=== PATIENT | male | born 1995 | race Caucasian/White ===

== ENCOUNTER 2017-09-02 23:17 | Emergency (ER) | payer OTHER ==
--- NOTE | 2017-09-03 00:37 | ER ---
Nurse's Notes [facility] Name: Morales Mccracken Age: 22 yrs Sex: Male : 1995 Arrival Date: 09/02/2017 Time: 23:18 Bed 28 Private MD: Diagnosis: Cellulitis of right upper limb-Possible insect bite Presentation: 09/02 23:40 Presenting complaint: Patient states: He got home from work and had his arm resting on kr2 the truck window, he felt a sting on his arm and swatted a but off of him but did not see what it was. He has a red raised bump with 3 dark purple spots on the right forearm area. Occurred about 2144. States his arm feels very stiff and aching. He also complains of hot/cold flashes. Transition of care: patient was not received from another setting of care. Onset of symptoms was September 02, 2017 at 21:45. Care prior to arrival: Medication(s) given: States he had a headache and took Excedrin prior to arriva. 23:40 Method Of Arrival: Ambulatory [facility] 23:40 Acuity: SARA 4 kr2 Triage Assessment: 23:47 Bite description: bite sustained to palmar aspect of right forearm is from insect by kr2 unknown, animal information: vaccination(s) is not applicable. General: Appears in no apparent distress. comfortable, well groomed, well developed, well nourished, Behavior is cooperative, appropriate for age, anxious. Pain: Complains of pain in palmar aspect of right forearm Pain radiates to right arm Pain currently is 7 out of 10 on a pain scale. Quality of pain is described as aching, tender, stinging, Pain began suddenly, Is continuous, Alleviated by nothing. Aggravated by touch. Historical: - Allergies: 23:46 PENICILLINS; kr2 23:46 Sulfa (Sulfonamide Antibiotics); kr2 23:50 bee stings; kr2 - Home Meds: 23:46 Excedrin Migraine 250-250-65 mg oral tab [Active]; kr2 - PMHx: 23:46 Deaf; kr2 - PSHx: 23:46 None; cochlear implants (unsuccessful); kr2 - Immunization history:: Adult Immunizations up to date. - Social history:: Smoking status: Patient/guardian denies using tobacco. Screenin:47 Abuse screen: Denies threats or abuse. Denies injuries from another. Nutritional kr2 screening: No deficits noted. Tuberculosis screening: No symptoms or risk factors identified. Fall Risk None identified. Assessment: 23:49 Derm: Skin is intact, is healthy with good turgor, Skin is pink, warm \T\ dry. kr2 09/03 01:00 Reassessment: Patient appears in no apparent distress at this time. No changes from tl3 previously documented assessment. Patient and/or family updated on plan of care and expected duration. Pain level reassessed. Patient is alert, oriented x 3, equal unlabored respirations, skin warm/dry/pink. pt reports that arm is feeling tight, Adonis notified. General: Appears. 01:08 Reassessment: RECD REPORT FROM EMILY RODRIGUES. 22YO WM P/W ALLERGIC RXN, ALL CURRENT ORDERS bp IN PROCESS. 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 02:27 Reassessment: PT D/C HOME AMBULATORY WITH FRIEND, DX WITH CELLULITIS. bp Vital Signs: 09/02 23:43 BP 158 / 106; Pulse 104; Resp 18; Temp 98.8; Pulse Ox 97% on R/A; Weight 83.91 kg; kr2 Height 5 ft. 8 in. (172.72 cm) (R); Pain 7/10; 09/03 01:18 BP 148 / 98; Pulse 98; Resp 18; Pulse Ox 100% ; tl3 02:28 BP 131 / 85; Pulse 97; Resp 16; Pulse Ox 98% ; bp 09/02 23:43 Body Mass Index 28.13 (83.91 kg, 172.72 cm) kr2 ED Course: 09/02 23:18 Patient arrived in ED. es 23:43 Triage completed. kr2 23:46 Adonis Tan, ANGELINA is PHCP. pm1 23:46 Randolph Macias MD is Attending Physician. pm1 23:49 Arm band placed on. kr2 23:49 Patient has correct armband on for positive identification. Bed in low position. Call kr2 light in reach. Side rails up X 1. Pulse ox on. NIBP on. Door closed. Warm blanket given. Head of bed elevated. 09/03 01:08 Nely Farley, RN is Primary Nurse. tl3 01:18 No provider procedures requiring assistance completed. Inserted saline lock: 22 gauge tl3 in right antecubital area, using aseptic technique. 02:27 IV discontinued, intact, bleeding controlled, No redness/swelling at site. Pressure bp dressing applied. 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 Exp: bp 01/03/2020. Lot #: [id number]. } Route: IM; Site: left deltoid; 01:26 Follow up: Response: No adverse reaction bp 01:15 Drug: Pepcid 20 mg Route: IVP; Site: right antecubital; bp 01:26 Follow up: Response: No adverse reaction bp 01:15 Drug: Benadryl 25 mg Route: IVP; Site: right antecubital; bp 01:25 Follow up: Response: No adverse reaction bp 01:15 Drug: Decadron - Dexamethasone 10 mg Route: IVP; Site: right antecubital; bp 01:25 Follow up: Response: Pain is decreased bp 01:15 Drug: NS 0.9% 1000 ml Route: IV; Rate: 1000 ml; Site: right antecubital; bp 02:27 Follow up: IV Status: Completed infusion bp Outcome: 00:37 Discharge ordered by MD. pm1 02:16 Discharge ordered by MD. pm1 02:29 Discharged to home ambulatory, with friend. bp 02:29 Condition: stable 02:29 Discharge instructions given to patient, friend, Instructed on discharge instructions, follow up and referral plans. medication usage, Demonstrated understanding of instructions, follow-up care, medications, Prescriptions given X 4. 02:29 Patient left the ED. bp Signatures: Marianna Shi Patrick, DIE GRINDER DIE GRINDER pm1 Donnie Deng RN RN bp Emily Tinoco RN RN kr2 Nely Farley RN RN tl3 Corrections: (The following items were deleted from the chart) 01:26 01:08 Reassessment: RECD REPORT FROM EMILY RODRIGUES. 22YO WM P/W ALLERGIC RXN, ALL CURRENT bp ORDERS IN PROCESS tl3
--- NOTE | 2017-09-03 00:37 | EDPHYS ---
Physician Documentation [facility] Name: Morales Mccracken Age: 22 yrs Sex: Male : 1995 Arrival Date: 09/02/2017 Time: 23:18 Bed 28 Private MD: ED Physician Randolph Macias HPI: 09/03 02:00 This 22 yrs old Male presents to ER via Ambulatory with complaints of Insect pm1 Bite. 02:00 the patient presents with a swollen area of the palmar aspect of right forearm. pm1 Description: raised. Onset: The symptoms/episode began/occurred today. Possible cause(s): unknown, insect sting. Associated signs and symptoms: Pertinent positives: swelling, Pertinent negatives: discharge, drainage, foreign body sensation, fever. Modifying factors: the symptoms are alleviated by nothing, the symptoms are aggravated by touching. Severity of symptoms: in the emergency department the symptoms are actually worse. The patient has not experienced similar symptoms in the past. The patient has not recently seen a physician. Historical: - Allergies: 09/02 23:46 PENICILLINS; kr2 23:46 Sulfa (Sulfonamide Antibiotics); kr2 23:50 bee stings; kr2 - Home Meds: 23:46 Excedrin Migraine 250-250-65 mg oral tab [Active]; kr2 - PMHx: 23:46 Deaf; kr2 - PSHx: 23:46 None; cochlear implants (unsuccessful); kr2 - Immunization history:: Adult Immunizations up to date. - Social history:: Smoking status: Patient/guardian denies using tobacco. ROS: 09/03 02:00 Constitutional: Negative for fever, chills, and weight loss, Eyes: Negative for injury, pm1 pain, redness, and discharge, ENT: Negative for injury, pain, and discharge, Neck: Negative for injury, pain, and swelling, Cardiovascular: Negative for chest pain, palpitations, and edema, Respiratory: Negative for shortness of breath, cough, wheezing, and pleuritic chest pain, Abdomen/GI: Negative for abdominal pain, nausea, vomiting, diarrhea, and constipation, Back: Negative for injury and pain. MS/extremity: Positive for Pain to right armpit and right forearm. Possible insect stings to right forearm. Skin: Positive for swelling, of the palmar aspect of right forearm, Pain. Exam: 02:00 Constitutional: This is a well developed, well nourished patient who is awake, alert, pm1 and in no acute distress. Head/Face: Normocephalic, atraumatic. Eyes: Pupils equal round and reactive to light, extra-ocular motions intact. Lids and lashes normal. Conjunctiva and sclera are non-icteric and not injected. Cornea within normal limits. Periorbital areas with no swelling, redness, or edema. ENT: Nares patent. No nasal discharge, no septal abnormalities noted. Tympanic membranes are normal and external auditory canals are clear. Oropharynx with no redness, swelling, or masses, exudates, or evidence of obstruction, uvula midline. Mucous membranes moist. Neck: Trachea midline, no thyromegaly or masses palpated, and no cervical lymphadenopathy. Supple, full range of motion without nuchal rigidity, or vertebral point tenderness. No Meningismus. Chest/axilla: Normal chest wall appearance and motion. Nontender with no deformity. No lesions are appreciated. Cardiovascular: Regular rate and rhythm with a normal S1 and S2. No gallops, murmurs, or rubs. Normal PMI, no JVD. No pulse deficits. Respiratory: Lungs have equal breath sounds bilaterally, clear to auscultation and percussion. No rales, rhonchi or wheezes noted. No increased work of breathing, no retractions or nasal flaring. Abdomen/GI: Soft, non-tender, with normal bowel sounds. No distension or tympany. No guarding or rebound. No evidence of tenderness throughout. Back: No spinal tenderness. No costovertebral tenderness. Full range of motion. 02:00 Skin: Appearance: normal except for affected area, cellulitis, that is mild, on the palmar aspect of right forearm. Vital Signs: 09/02 23:43 BP 158 / 106; Pulse 104; Resp 18; Temp 98.8; Pulse Ox 97% on R/A; Weight 83.91 kg; kr2 Height 5 ft. 8 in. (172.72 cm) (R); Pain /10; 09/03 01:18 BP 148 / 98; Pulse 98; Resp 18; Pulse Ox 100% ; tl3 02:28 BP 131 / 85; Pulse 97; Resp 16; Pulse Ox 98% ; bp 09/02 23:43 Body Mass Index 28.13 (83.91 kg, 172.72 cm) kr2 MDM: 09/02 23:53 Patient medically screened. pm1 09/03 00:36 Data reviewed: vital signs. Data interpreted: Pulse oximetry: on room air is 97 %. pm1 Interpretation: normal. Counseling: I had a detailed discussion with the patient and/or guardian regarding: the historical points, exam findings, and any diagnostic results supporting the discharge/admit diagnosis, the need for outpatient follow up, to return to the emergency department if symptoms worsen or persist or if there are any questions or concerns that arise at home. 02:13 Counseling: I had a detailed discussion with the patient and/or guardian regarding: the pm1 historical points, exam findings, and any diagnostic results supporting the discharge/admit diagnosis, the need for outpatient follow up, to return to the emergency department if symptoms worsen or persist or if there are any questions or concerns that arise at home, Patient symptoms improved after medications given. 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 Exp: bp 01/03/2020. Lot #: [id number]. } Route: IM; Site: left deltoid; 01:26 Follow up: Response: No adverse reaction bp 01:15 Drug: Pepcid 20 mg Route: IVP; Site: right antecubital; bp 01:26 Follow up: Response: No adverse reaction bp 01:15 Drug: Benadryl 25 mg Route: IVP; Site: right antecubital; bp 01:25 Follow up: Response: No adverse reaction bp 01:15 Drug: Decadron - Dexamethasone 10 mg Route: IVP; Site: right antecubital; bp 01:25 Follow up: Response: Pain is decreased bp 01:15 Drug: NS 0.9% 1000 ml Route: IV; Rate: 1000 ml; Site: right antecubital; bp 02:27 Follow up: IV Status: Completed infusion bp Disposition: 06:15 Co-signature as Attending Physician, Randolph Macias MD. pkl Disposition: 09/03/17 02:16 Discharged to Home. Impression: Cellulitis of right upper limb - Possible insect bite. - Condition is Stable. - Discharge Instructions: Insect Bite, Cellulitis. - Prescriptions for Tylenol- Codeine #3 300-30 mg Oral Tablet - take 2 tablets by ORAL route every 6 hours As needed; 20 tablet. Doxycycline Hyclate 100 mg Oral Tablet - take 1 tablet by ORAL route every 12 hours; 20 tablet. Medrol (Sadi) 4 mg Oral Tablets, Dose Pack - take 1 tablet by ORAL route as directed - follow package instructions; 1 packet. Bactroban 2 % Topical Ointment - Apply to affected area 1 application by TOPICAL route every 12 hours; 30 gram. - Medication Reconciliation Form, Thank You Letter, Antibiotic Education, Prescription Opioid Use form. - Follow up: Emergency Department; When: As needed; Reason: Worsening of condition. Follow up: Private Physician; When: 2 - 3 days; Reason: Recheck today's complaints, Continuance of care, Re-evaluation by your physician. - Problem is new. - Symptoms have improved. Signatures: Randolph Macias MD MD pkAdonis Heller NP ADVERTISING PROJECT MANAGER pm1 Donnie Deng, RN RN bp Emily Tinoco, RN RN kr2 Nely Farley, RN RN tl3
[2017-09-03] MEDS ORDERED: HYDROCODONE/APAP 10/325 TAB ONE (01:18)
[2017-09-03] MEDS ORDERED: NA CHLORIDE 0.9% 1,000 ML ONE ×2 (01:22→01:30)
[2017-09-03] MEDS ORDERED: DEXAMETHASONE 10 MG/ML VIAL ONE ×2 (01:22→01:30)
[2017-09-03] MEDS ORDERED: FAMOTIDINE 20 MG/2 ML VIAL IV ONE (01:23)
[2017-09-03] MEDS ORDERED: DIPHENHYDRAMINE 50 MG/ML VIAL ONE (01:23)
[2017-09-03] MEDS ORDERED: TETANUS & DIPHTHERIA TOX,ADULT 0.5 ML VIAL ONE (01:23)
[2017-09-03 02:35] VITALS: TEMP 98.8
[2017-09-03 02:37] VITALS: BP 131/85; O2SAT 98
== END 2017-09-03 02:29 | disposition home or self-care (01) ==
LOC: ER 23:17
DX: L03.113 Cellulitis of right upper limb (principal); Z23 Encounter for immunization; Z88.0 Allergy status to penicillin; Z88.2 Allergy status to sulfonamides; Z91.030 Bee allergy status
CPT/HCPCS: 90714; 96361; 96374; 96375; 99284; J1100; J7030